=== PATIENT | female | born 1975 | race Caucasian/White ===

== ENCOUNTER 2020-04-18 09:43 | Emergency (ER) | payer OTHER ==
[~2020-04-18] VITALS: Ht 160 cm; Wt 95.3 kg
[~2020-04-18 09:43] MED LIST: ADVIL100 M1 PO; NORFLEX100 MG PO; PERCOCET 5-3251 EACH PO
[2020-04-18] MEDS ORDERED: NOHOMEMEDICATIONS (10:13)
[2020-04-18] MEDS ORDERED: GUAIFEN-CODEINE10 ML PO (11:03)
[2020-04-18] MEDS ORDERED: ZPAK PO (11:03)
[2020-04-18 11:22] VITALS: BP 146/66
== END 2020-04-18 11:23 | disposition home or self-care (01) ==
LOC: ER 09:43
DX: J06.9 Acute upper respiratory infection, unspecified (principal); J45.909 Unspecified asthma, uncomplicated; Z20.828 Contact with and (suspected) exposure to other viral communicable diseases